=== PATIENT | female | born 1980 | race Two or more races ===

== ENCOUNTER 2017-09-30 20:47 | Emergency (ER) | payer OTHER ==
[~2017-09-30] VITALS: Ht 170.2 cm; Wt 97.1 kg
[~2017-09-30 20:47] MED LIST: IBUPROFEN800 MG PO; ORPH100T PO; [UNRECOGNIZED DRUG - OTHER]
== END 2017-09-30 22:59 | disposition home or self-care (01) ==
LOC: ER 20:47
DX: M10.9 Gout, unspecified (principal); M25.561 Pain in right knee

== ENCOUNTER 2020-02-16 12:25 | Emergency (ER) | payer OTHER ==
[~2020-02-16] VITALS: Ht 170.2 cm; Wt 99.8 kg
== END 2020-02-16 15:31 | disposition home or self-care (01) ==
LOC: ER 12:25
DX: M25.562 Pain in left knee (principal)

== ENCOUNTER 2022-03-26 17:40 | Emergency (ER) | payer OTHER ==
[~2022-03-26] VITALS: Ht 172.7 cm; Wt 97.5 kg
[~2022-03-26 17:40] MED LIST changes: +CELEBREX200MG PO; +MEDROLPACK PO
== END 2022-03-26 22:06 | disposition home or self-care (01) ==
LOC: ER 17:40
DX: M25.562 Pain in left knee (principal)

== ENCOUNTER → 2022-06-05 | Emergency (ER) | payer OTHER ==
[~2022-06-05] VITALS: Ht 170.2 cm; Wt 95.3 kg
== END | disposition home or self-care (01) ==
LOC: ER 11:12
DX: S81.052A Open bite, left knee, initial encounter (principal); W54.0XXA Bitten by dog, initial encounter; Y93.89 Activity, other specified; Y92.89 Other specified places as the place of occurrence of the external cause; Y99.9 Unspecified external cause status; Z88.2 Allergy status to sulfonamides; Z88.8 Allergy status to other drugs, medicaments and biological substances